=== PATIENT | male | born 1965 | race Caucasian/White ===

== ENCOUNTER 2022-08-03 11:54 | Emergency (ER) | payer OTHER, SELFPAY ==
[2022-08-03] VITALS (8 sets, daily range): BP systolic 129–146; BP diastolic 68–86; PULSE 81–89; RESP 15–21; TEMP 36.1; O2SAT 94–97; BMI 33.7
--- NOTE | 2022-08-03 12:09 | DI.CT.S_ITS ---
PROCEDURE: CT HEAD/BRAIN WO CON INDICATIONS: vision loss R Lower, recent COVID, likely central retinal occ TECHNIQUE: Noncontrast 4.5 mm thick angled axial sections acquired from the foramen magnum to the vertex, with coronal and sagittal reformats. For radiation dose reduction, the following was used: automated exposure control, adjustment of mA and/or kV according to patient size. COMPARISON: None. FINDINGS: Image quality: Excellent. CSF spaces: Basal cisterns are patent. No extra-axial fluid collections. Ventricles are normal in size and shape. Brain: No midline shift. No intracranial masses or hemorrhage. Jasso-white matter interface is normal. Skull and face: Calvarium and visualized facial bones are intact, without suspicious lesions. Soft tissue irregularity can be seen involving the right posterior scalp, as on series 2, image 24 and on series 4, image 31. Sinuses: Visualized sinuses and mastoids are clear. IMPRESSION: No significant noncontrast head CT abnormality can be seen. Scalp irregularity is seen on the right posteriorly, which may be related to a remote injury. Please correlate with patient history and physical examination findings. Dictated by: Ignacio Recio M.D. on 08/03/2022 at 11:36 Approved by: Ignacio Recio M.D. on 08/03/2022 at 11:37
--- NOTE | 2022-08-03 12:21 | PC.NURSE ---
pt queried by di staff regarding allergies to idodine and pt states no im not but your not gonna give me contrast pt asked why?is there an allergy and pt states no but im not gonna get it because i dont believe in it MD aware charting pt refusal of ct with contrast and will only proceed with ct without contrast.
[2022-08-03 12:29] LABS: Add Manual Diff / Slide Review NO; Basophils Absolute Auto 0 /uL (0-100); Basophils Percent Auto 0.3 % (0-2); Eosinophils Absolute Auto 300 /uL (0-450); Eosinophils Percent Auto 3.7 % (2-4); Hematocrit 46.6 % (41-53); Hemoglobin 15.6 g/dL (13.5-17.5); Lymphocytes Absolute Auto 2900 /uL (1100-4500); Lymphocytes Percent Auto 32.4 % (25-40); Mean Corpuscular HGB Conc 33.4 % (30-36); Mean Corpuscular Hemoglobin 29.2 PG (26-34); Mean Corpuscular Volume 87.3 fL (80-100); Monocytes Absolute Auto 400 /uL (0-900); Monocytes Percent Auto 4.2 % (3-14); Neutrophils Absolute Auto 5300 /uL (1500-7000); Neutrophils Percent Auto 59.4 % (50-75); Platelet Count 218 X10^3/uL (150-400); Red Blood Cell Count 5.34 X10^6/uL (4.5-5.9); Red Cell Distribution Width 13.9 % (11.6-14.8); White Blood Cell Count 8.9 X10^3/uL (4.5-11.0)
--- NOTE | 2022-08-03 12:30 | ED.NEUROSD ---
HPI - Neuro Symptoms/Deficit General Chief Complaint: Neuro Symptoms/Deficit Stated Complaint: sent by Eye for stroke assessment Time Seen by Provider: 08/03/22 12:09 Source: patient Mode of arrival: Ambulatory History of Present Illness HPI Narrative: This is a 56-year-old male with no known medical issues but no primary care visits recently. Patient had recent COVID infection about 10 or 14 days ago with fever, chills, headache, upper respiratory symptoms myalgias which had been improving. He lost vision with his right eye he states it is fuzzy in the lower portion for the last 4 days. He states he woke up with these symptoms. No eye pain, no vision changes on the left. Patient was seen with Dr. Callie yen with ophthalmology as an outpatient and she notes a right lower bottom hemianopsia with some right edema of the disc suspicious for anterior ischemic changes. Patient is recommended for stroke workup, ESR, CRP and labs. Dr. Yen spoke with myself, she also recommends brimonidine eye drops to the right eye t.i.d. with follow-up with her regardless of findings. Patient states headache, no vision changes to the left, no chest pain or shortness of breath, no numbness, tingling or weakness, no difficulty with speech, no facial droop. Patient states he is not had similar symptoms in the past. He states his 3rd episode of COVID in the past several years. He states he does not follow the primary care physician has not seen 1 in several years. He is not currently established. Denies any daily medications, no surgeries. No known drug allergies. He chews nicotine gum daily, no alcohol, no illicit. Patient initially refused CT angio for concerns for contrast/renal dysfunction reactions. Discussed risks versus benefits and patient later decided to forward after checking his creatinine and fluids to be given. On Anticoagulants: No Related Data Home Medications Medication Instructions Recorded Confirmed cholecalciferol (vitamin D3) 125 5,000 unit PO QDAY ##0 10/17/17 02/19/19 mcg (5,000 unit) capsule Previous Rx's Medication Instructions Recorded albuterol sulfate 90 mcg/actuation 1 inh inhalation Q4-6H PRN 02/19/19 aerosol inhaler shortness of breath #18 grams azithromycin 250 mg tablet See Rx Instructions PO .COMPLEX #6 02/19/19 tabs benzonatate 100 mg capsule 100 mg PO BEDTIME #20 caps 02/19/19 Allergies Allergy/AdvReac Type Severity Reaction Status Date / Time No Known Drug Allergies Allergy Verified 08/03/22 12:06 Review of Systems Review of Systems ROS Unobtainable: All systems reviewed & are unremarkable except as noted in HPI and below Hematologic/Lymphatic On Anticoagulants: No Patient History Medical History Skin cancer (2016) Social History Smoking Status: Unknown if ever smoked Smoking Status: Unknown if ever smoked alcohol intake frequency: holidays/special occasions only Substance Use Type: does not use Exam Narrative Exam Narrative: GEN: well nourished, well appearing male, alert and oriented x 3, patient appears to be in mild distress. HEENT: Atraumatic, pupils are equal round reactive to light, extraocular movements are intact, nares are clear, TMs are clear with no fluid, there is no conjunctival pallor. Throat is clear without any exudates, erythema, tonsillar enlargement or uvular deviation, no facial droop. Patient had dedicated eye exam just prior to arrival with ophthalmology was not recreated today. HEART: Regular rate and rhythm without murmur, clicks, rubs. LUNGS:Lungs clear to auscultation, no wheezes, rales, crackles, chest moves symmetrically ABD:bowel sounds normal, soft, non-tender, no guarding, rebound, rigidity, no masses noted, no hepatosplenomegaly :No CVA tenderness. MSCL: Non-tender, no muscle atrophy, muscles strength 5/5 upper and lower extremities, full range of motion, normal gait NEURO:CN 2-12 intact, sensation normal, reflexes 2/4 upper and lower extremities. finger nose finger test normal, heel ceballos test normal SKIN: No rash, erythema or other skin changes Initial Vital Signs Initial Vital Signs: Vital Signs Temperature 97.0 F L 08/03/22 12:06 Pulse Rate 89 08/03/22 12:06 Respiratory Rate 15 08/03/22 12:06 Blood Pressure 142/86 H 08/03/22 12:06 Pulse Oximetry 96 08/03/22 12:06 Oxygen Delivery Method 08/03/22 12:06 Scores NIH Stroke Scale Level of Conciousness: Alert, keenly responsive Ask month/age: Answers both questions correctly. Open/close eyes, close hand: Performs both tasks correctly Best gaze horizontal: Normal Visual ying: Partial hemianopia Facial palsy: Normal symetrical movement Left arm drift: No drift for full 10 sec Right arm drift: No drift for full 10 sec Left leg drift: No drift for full 5 sec Right leg drift: No drift for full 5 sec Limb ataxia: Absent Sensory on face/arms/legs: Normal, no sensory loss Best language: No aphasia, normal Dysarthria: Normal Extinction or inattention: No abnormality Total NIH Stroke scale score: 1 Course Orders Ordered: ED Orders 08/03/22 12:09 CT head/brain wo con Stat 08/03/22 12:16 CRP [C-Reactive Protein Quant] Stat Complete Blood Count AUTO DIFF Stat Comprehensive Metabolic Panel Stat ESR [Erythrocyte Sedimentation Rate] Stat Ethanol (ETOH) Stat Partial Thromboplastin Time Stat Prothrombin Time INR Stat Troponin & CK Cardiac Panel Stat EKG-12 Lead Stat 08/03/22 12:51 CT angio head and neck Stat 08/03/22 13:10 COVID19 -Nasal RAPID/Pre-Proc Stat 08/03/22 13:25 Urine Drug Screen, Rapid Stat Discontinued Medications Aspirin (Aspirin 81 Mg Chew Tab) 324 mg PO NOW ONE Stop: 08/03/22 14:42 Last Admin: 08/03/22 14:45 Dose: 324 mg Documented By: LESVIA Sodium Chloride (Normal Saline 0.9%) 1,000 mls @ 1,000 mls/hr IV BOLUS ONE Stop: 08/03/22 13:50 Last Infusion: 08/03/22 15:15 Dose: 0 mls/hr Documented By: Admin: 08/03/22 13:30 Dose: 1,000 mls/hr Documented By: LESVIA Vital Signs Vital signs: Vital Signs - 8 hr 08/03/22 12:06 08/03/22 12:18 08/03/22 12:18 Temperature 97.0 F L Pulse Rate 89 88 Respiratory Rate 15 18 Blood Pressure 142/86 H 131/73 Pulse Oximetry 96 94 Oxygen Delivery Method Room Air Room Air 08/03/22 12:30 08/03/22 12:30 08/03/22 13:06 Temperature Pulse Rate 87 86 Respiratory Rate 20 20 Blood Pressure 139/81 Pulse Oximetry 94 97 Oxygen Delivery Method 08/03/22 13:28 08/03/22 13:28 08/03/22 13:30 Temperature Pulse Rate 83 Respiratory Rate 20 Blood Pressure 145/73 H 146/76 H Pulse Oximetry 96 Oxygen Delivery Method 08/03/22 13:30 08/03/22 14:00 08/03/22 14:00 Temperature Pulse Rate 84 83 Respiratory Rate 16 17 Blood Pressure 129/70 Pulse Oximetry 95 94 Oxygen Delivery Method Room Air 08/03/22 14:30 08/03/22 14:30 Temperature Pulse Rate 81 Respiratory Rate 21 Blood Pressure 130/68 Pulse Oximetry 94 Oxygen Delivery Method MDM - Neuro Symptoms/Deficit Lab Data 08/03/22 12:16 08/03/22 12:16 Labs: Lab Results 08/03/22 08/03/22 08/03/22 Range/Units 12:16 12:16 12:16 WBC 8.9 (4.5-11.0) X10^3/uL RBC 5.34 (4.5-5.9) X10^6/uL Hgb 15.6 (13.5-17.5) g/dL Hct 46.6 (41-53) % MCV 87.3 (80-100) fL MCH 29.2 (26-34) PG MCHC 33.4 (30-36) % RDW 13.9 (11.6-14.8) % Plt Count 218 (150-400) X10^3/uL Neut % (Auto) 59.4 (50-75) % Lymph % (Auto) 32.4 (25-40) % [place] % (Auto) 4.2 (3-14) % Eos % (Auto) 3.7 (2-4) % Baso % (Auto) 0.3 (0-2) % Neut # (Auto) 5300 (1916-0515) /uL Lymph # (Auto) 2900 (0040-5560) /uL [place] # (Auto) 400 (0-900) /uL Eos # (Auto) 300 (0-450) /uL Baso # (Auto) 0 (0-100) /uL ESR 9 (0-15) MM/HR PT 12.0 (10.1-12.7) SECONDS INR 1.0 (0.9-1.3) APTT 28 (26-36) SECONDS Sodium 135 L (137-145) mmol/L Potassium 4.0 (3.4-5.1) mmol/L Chloride 98 (98-107) mmol/L Carbon Dioxide 27 (22-32) mmol/L BUN 13 (9-20) mg/dL Creatinine 0.63 L (0.66-1.25) mg/dL Estimated GFR > 60 (>60) mL/min BUN/Creatinine Ratio 20.6 (6-22) Glucose 351 H (70-100) mg/dL Calcium 9.5 (8.4-10.2) mg/dL Total Bilirubin 0.7 (0.2-1.3) mg/dL AST 21 (17-59) IU/L ALT 26 (<50) IU/L Alkaline Phosphatase 147 H (38-126) U/L Total Creatine Kinase 148 (55-170) U/L CK-MB (CK-2) 4.78 H (<2.37) ng/mL CK-MB (CK-2) Rel Index 3.2 (1.5-5.0) % Troponin I < 0.012 (0.01-0.034) ng/mL C-Reactive Protein 1.5 H (<1.0) mg/dL Total Protein 7.7 (6.3-8.2) g/dL Albumin 4.3 (3.5-5.0) g/dL Globulin 3.4 (1.7-4.1) g/dL Albumin/Globulin Ratio 1.3 (1.0-2.8) U Opiates 300ng/mL cut (Negative) Ur Oxycodone Screen (Negative) Urine Methadone Screen (Negative) Ur Barbiturates Screen (Negative) U Tricyclic Antidepress (Negative) Ur Phencyclidine Scrn (Negative) Ur Amphetamines Screen (Negative) U Methamphetamines Scrn (Negative) Ur MDMA Scrn (Ecstasy) (Negative) U Benzodiazepines Scrn (Negative) Urine Cocaine Screen (Negative) U Marijuana (THC) Screen (Negative) Ethyl Alcohol < 10 ( - 10) mg/dL SARS-CoV-2 (PCR) (Negative) 08/03/22 08/03/22 Range/Units 13:10 13:25 WBC (4.5-11.0) X10^3/uL RBC (4.5-5.9) X10^6/uL Hgb (13.5-17.5) g/dL Hct (41-53) % MCV (80-100) fL MCH (26-34) PG MCHC (30-36) % RDW (11.6-14.8) % Plt Count (150-400) X10^3/uL Neut % (Auto) (50-75) % Lymph % (Auto) (25-40) % [place] % (Auto) (3-14) % Eos % (Auto) (2-4) % Baso % (Auto) (0-2) % Neut # (Auto) (6226-7944) /uL Lymph # (Auto) (5669-4590) /uL [place] # (Auto) (0-900) /uL Eos # (Auto) (0-450) /uL Baso # (Auto) (0-100) /uL ESR (0-15) MM/HR PT (10.1-12.7) SECONDS INR (0.9-1.3) APTT (26-36) SECONDS Sodium (137-145) mmol/L Potassium (3.4-5.1) mmol/L Chloride (98-107) mmol/L Carbon Dioxide (22-32) mmol/L BUN (9-20) mg/dL Creatinine (0.66-1.25) mg/dL Estimated GFR (>60) mL/min BUN/Creatinine Ratio (6-22) Glucose (70-100) mg/dL Calcium (8.4-10.2) mg/dL Total Bilirubin (0.2-1.3) mg/dL AST (17-59) IU/L ALT (<50) IU/L Alkaline Phosphatase (38-126) U/L Total Creatine Kinase (55-170) U/L CK-MB (CK-2) (<2.37) ng/mL CK-MB (CK-2) Rel Index (1.5-5.0) % Troponin I (0.01-0.034) ng/mL C-Reactive Protein (<1.0) mg/dL Total Protein (6.3-8.2) g/dL Albumin (3.5-5.0) g/dL Globulin (1.7-4.1) g/dL Albumin/Globulin Ratio (1.0-2.8) U Opiates 300ng/mL cut Negative (Negative) Ur Oxycodone Screen Negative (Negative) Urine Methadone Screen Negative (Negative) Ur Barbiturates Screen Negative (Negative) U Tricyclic Antidepress Negative (Negative) Ur Phencyclidine Scrn Negative (Negative) Ur Amphetamines Screen Negative (Negative) U Methamphetamines Scrn Negative (Negative) Ur MDMA Scrn (Ecstasy) Negative (Negative) U Benzodiazepines Scrn Negative (Negative) Urine Cocaine Screen Negative (Negative) U Marijuana (THC) Screen Negative (Negative) Ethyl Alcohol ( - 10) mg/dL SARS-CoV-2 (PCR) Negative (Negative) Imaging Data CT scan - head: Radiologist's Impression: Yoav Lema??56??M??1965 ? Allergy/Adv: No Known Drug Allergies Close Head CT (Signed) Ignacio Recio - 08/03/22 [place] [address] CT Scan Report Signed Patient: Yaov Lema MR#: [id number] : 1965 Acct:[id number] Age/Sex: 56 / M Date of Service: 08/03/22 Loc: ED Accession Number: [id number] ?? Procedure: CT head/brain wo con Ordering Provider: Katarzyna Roque D.O. PROCEDURE:? CT HEAD/BRAIN WO CON ? INDICATIONS:? vision loss R Lower, recent COVID, likely central retinal occ ? TECHNIQUE:? Noncontrast 4.5 mm thick angled axial sections acquired from the foramen magnum to the vertex, with coronal and sagittal reformats.? For radiation dose reduction, the following was used:? automated exposure control, adjustment of mA and/or kV according to patient size.? ? COMPARISON:? None. ? FINDINGS:? Image quality:? Excellent.? ? CSF spaces:? Basal cisterns are patent.? No extra-axial fluid collections.? Ventricles are normal in size and shape.? ? Brain:? No midline shift.? No intracranial masses or hemorrhage.? Jasso-white matter interface is normal.? ? Skull and face:? Calvarium and visualized facial bones are intact, without suspicious lesions.? Soft tissue irregularity can be seen involving the right posterior scalp, as on series 2, image 24 and on series 4, image 31. ? Sinuses:? Visualized sinuses and mastoids are clear.? IMPRESSION:? No significant noncontrast head CT abnormality can be seen. ? Scalp irregularity is seen on the right posteriorly, which may be related to a remote injury.? Please correlate with patient history and physical examination findings.? ? Dictated by: Ignacio Recio M.D. on 08/03/2022 at 11:36 ? ? Approved by: Ignaico Recio M.D. on 08/03/2022 at 11:37?? CTA - brain/neck: Radiologist's Impression: Close Head/Neck CTA (Signed) Raulito Ramirez - 08/03/[address] (Signed) Ignacio Recio - 08/03/22 [facility]?[place] [address] CT Scan Report Signed Patient: Yoav Lema MR#: [id number] : 1965 Acct:[id number] Age/Sex: 56 / M Date of Service: 08/03/22 Loc: ED Accession Number: [id number] ?? Procedure: CT angio head and neck Ordering Provider: Katarzyna Roque D.O. PROCEDURE:? CT ANGIO HEAD AND NECK ? INDICATIONS:? retinal occlusion? right. ? TECHNIQUE:? ?After the administration of intravenous contrast, 1 mm thick sections acquired from the aortic arch through the [place] of [place].? Post-contrast 4.5 mm thick sections then re-acquired from the foramen magnum to the vertex.? 3-dimensional raedstb-ixctehuay-vevmqddkfw (MIP) and/or volume rendering reformats were acquired of the central intracranial vasculature and neck separately. For radiation dose reduction, the following was used:? automated exposure control, adjustment of mA and/or kV according to patient size.? ? COMPARISON:? [facility], CT, CT HEAD/BRAIN WO CON, 08/03/2022, 12:24. ? FINDINGS:? Image quality:? Excellent.? ? BRAIN:? CSF spaces:? Ventricles are normal in size and shape.? Basal cisterns are patent.? No extra-axial fluid collections.? ? Brain:? No midline shift.? No acute intracranial hemorrhage or mass effect.? Jasso-white matter interface appears intact.? ? Skull and face:? Calvarium and facial bones appear intact, without suspicious lesions.? Orbits appear normal.? Chronic nonspecific right posterior scalp irregularity, likely scarring. ? Sinuses:? Sinuses and mastoids are clear.? ? HEAD CT ANGIOGRAPHY:? Anterior circulation:? Intracranial internal carotid arteries are normal in size and flow.? The ophthalmic arteries are grossly patent bilaterally.? The central retinal arteries are too small to visualize with CT.? The flow within the paired anterior cerebral arteries is normal and symmetric.? The flow within the middle cerebral arteries is normal and symmetric.? The anterior communicating artery is seen.? No aneurysms are seen.? ? Posterior circulation:? Visualized portions of the vertebral arteries demonstrate normal caliber, and join to form a normal appearing basilar artery.? Flow within the posterior cerebral arteries is normal and symmetric.? No aneurysms are seen.? ? NECK CT ANGIOGRAPHY:? Carotid system:? There is a common origin of the right brachiocephalic artery and left common carotid artery, a normal variant.? The origins of the common carotid arteries appear patent.? The common carotid arteries demonstrate normal caliber and courses.? The bifurcation regions are both widely patent.? The internal carotid arteries demonstrate normal calibers and tortuous courses.? ? Posterior circulation:? The origins of the vertebral arteries both appear widely patent.? The more superior extracranial portions of both vertebral arteries also demonstrate normal courses and calibers.? They join to form a normal appearing basilar artery.? ? Soft tissues:? Visualized neck soft tissues demonstrate no suspicious abnormalities.? ? Bones:? No suspicious bony lesions.? Mild degenerative changes are seen in the spine. ? ? IMPRESSION:? 1. No significant arterial stenosis or large vessel occlusion.? Proximal ophthalmic arteries are patent bilaterally. 2. Tortuosity of the internal carotid arteries can be seen in the setting of chronic systemic hypertension. 3. No acute intracranial abnormality is seen.? ? Any quantitative measurements of stenosis were performed using NASCET criteria.? Approved by: Raulito Ramirez M.D. on 08/03/2022 at 14:00? ECG Data Attestation: I personally reviewed and interpreted this ECG as follows: Prior ECG tracings: not available for review Interpretation: Sinus rhythm right bundle-branch block, left anterior fascicular block. Bifascicular block with rate 80 TX 152 QRS 8160 QTC of 496. No priors for comparison. MDM Narrative Medical decision making narrative: Patient's note from Dr. 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 with superior edema and possible Hollenhorst plaque he also has what is called a disc at risk with crowded small cup-to-disc bilaterally causes of ischemic optic neuropathy should also be considered and include sed rate and CRP to rule out temporal arteritis, concern for hypercoagulable state with COVID, visual testing shows inferior altitudinal loss of the right eye consistent with edema and macular OCT showing edema only peripapillary, prognosis for recovery is poor they recommend brimonidine 2% 3 times daily to the right eye with follow-up at least aspirin 81 mg daily if workup is negative This is a 56-year-old male with concern for retinal artery occlusion as possible stroke and was sent by ophthalmology for additional workup. Patient's labs show a negative ESR but elevated CRP, patient has right lower vision changes but no other changes seems much more consistent with hemianopsia than a giant cell arteritis. Patient has not had any tenderness on the side he did have some headache, patient had recent COVID which increases his hypercoagulable potential initial head CT is negative, there was some delay with CT angio as patient was concerned about contrast induced nephropathy and reactions. After discussion offered carotid ultrasounds but will not allow us to visualize the intracranial vessels as well. Patient decided after fluids and checking renal function to go ahead and proceed with CT angio. Discussed risks versus benefits. Patient's NIH is 1 for his vision change and otherwise negative neurologic exam. Patient is far outside of tPA window with at least. CT head is negative, CT angio does not show acute occlusive changes, proximal ophthalmic arteries are bilaterally patent. Tortuosity and ICAs can be seen in setting of chronic systemic hypertension. ESR is negative but CRP is elevated, CBC, CMP and coags otherwise show no major changes. Based on patient's recent symptoms my suspicion is much higher for central retinal artery occlusion over giant cell arteritis. Patient is to follow up with Ophthalmology, aspirin 81 mg daily brimonidine drops which have already been sent by Dr. Yen. Patient given referral for primary care for additional workup. 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 She recommend you continue monitoring drips, to the right eye 3 times daily. Prescription sent to [facility] in [place] You also need to follow up with primary care for additional workup to evaluate for cholesterol and additional appropriate stroke workup. I would recommend you take an aspirin 81 mg daily. Please return for new vision changes, numbness, tingling weakness, speech changes, difficulty with ambulation, severe headaches, chest pain or shortness of breath or other new or concerning changes. Prescriptions: No Action azithromycin 250 mg tablet See Rx Instructions PO .COMPLEX Qty: 6 0RF Rx Instructions: take 500 mg today (day 1), then 250 mg for 4 days (days 2-5) PO benzonatate 100 mg capsule 100 mg PO BEDTIME Qty: 20 0RF albuterol sulfate 90 mcg/actuation HFA aerosol inhaler 1 inh INHALATION Q4-6H PRN (Reason: shortness of breath) Qty: 18 0RF cholecalciferol (vitamin D3) 5,000 UNIT capsule 5,000 unit PO QDAY Qty: 0 Referrals: Miscellaneous,Doctor, [Primary Care Provider] - Barbara Stacy DO [Physician] - Stand Alone Forms: Patient Portal/API
[2022-08-03 12:45] LABS: PTT Partial Thromboplastin Tim 28 SECONDS (26-36)
[2022-08-03 12:46] LABS: Alanine Aminotransferase 26 IU/L (<50); Albumin 4.3 g/dL (3.5-5.0); Albumin Globulin Ratio 1.3 (1.0-2.8); Alkaline Phosphatase 147 U/L (38-126); Aspartate Aminotransferase 21 IU/L (17-59); BUN Creatinine Ratio 20.6 (6-22); Bilirubin Total 0.7 mg/dL (0.2-1.3); Blood Urea Nitrogen 13 mg/dL (9-20); C-Reactive Protein Quant 1.5 mg/dL (<1.0); Calcium 9.5 mg/dL (8.4-10.2); Carbon Dioxide 27 mmol/L (22-32); Chloride 98 mmol/L (98-107); Creatine Kinase 148 U/L (55-170); Estimated Glomerular Filt Rate > 60 mL/min (>60); Ethanol (ETOH) < 10 mg/dL; Globulin 3.4 g/dL (1.7-4.1); Glucose 351 mg/dL (70-100); Sodium 135 mmol/L (137-145); Total Protein 7.7 g/dL (6.3-8.2)
--- NOTE | 2022-08-03 12:51 | DI.CT.S_ITS ---
PROCEDURE: CT ANGIO HEAD AND NECK INDICATIONS: retinal occlusion? right. TECHNIQUE: After the administration of intravenous contrast, 1 mm thick sections acquired from the aortic arch through the [place] of [place]. Post-contrast 4.5 mm thick sections then re-acquired from the foramen magnum to the vertex. 3-dimensional vxcwczw-wixdbhrej-ffyvowqnrw (MIP) and/or volume rendering reformats were acquired of the central intracranial vasculature and neck separately. For radiation dose reduction, the following was used: automated exposure control, adjustment of mA and/or kV according to patient size. COMPARISON: [facility], CT, CT HEAD/BRAIN WO CON, 08/03/2022, 12:24. FINDINGS: Image quality: Excellent. BRAIN: CSF spaces: Ventricles are normal in size and shape. Basal cisterns are patent. No extra-axial fluid collections. Brain: No midline shift. No acute intracranial hemorrhage or mass effect. Jasso-white matter interface appears intact. Skull and face: Calvarium and facial bones appear intact, without suspicious lesions. Orbits appear normal. Chronic nonspecific right posterior scalp irregularity, likely scarring. Sinuses: Sinuses and mastoids are clear. HEAD CT ANGIOGRAPHY: Anterior circulation: Intracranial internal carotid arteries are normal in size and flow. The ophthalmic arteries are grossly patent bilaterally. The central retinal arteries are too small to visualize with CT. The flow within the paired anterior cerebral arteries is normal and symmetric. The flow within the middle cerebral arteries is normal and symmetric. The anterior communicating artery is seen. No aneurysms are seen. Posterior circulation: Visualized portions of the vertebral arteries demonstrate normal caliber, and join to form a normal appearing basilar artery. Flow within the posterior cerebral arteries is normal and symmetric. No aneurysms are seen. NECK CT ANGIOGRAPHY: Carotid system: There is a common origin of the right brachiocephalic artery and left common carotid artery, a normal variant. The origins of the common carotid arteries appear patent. The common carotid arteries demonstrate normal caliber and courses. The bifurcation regions are both widely patent. The internal carotid arteries demonstrate normal calibers and tortuous courses. Posterior circulation: The origins of the vertebral arteries both appear widely patent. The more superior extracranial portions of both vertebral arteries also demonstrate normal courses and calibers. They join to form a normal appearing basilar artery. Soft tissues: Visualized neck soft tissues demonstrate no suspicious abnormalities. Bones: No suspicious bony lesions. Mild degenerative changes are seen in the spine. IMPRESSION: 1. No significant arterial stenosis or large vessel occlusion. Proximal ophthalmic arteries are patent bilaterally. 2. Tortuosity of the internal carotid arteries can be seen in the setting of chronic systemic hypertension. 3. No acute intracranial abnormality is seen. Any quantitative measurements of stenosis were performed using NASCET criteria. Approved by: Raulito Ramirez M.D. on 08/03/2022 at 14:00
[2022-08-03 12:54] LABS: Erythrocyte Sedimentation Rate 9 MM/HR (0-15)
[2022-08-03 12:55] LABS: Troponin I < 0.012 ng/mL (0.01-0.034)
[2022-08-03 13:01] LABS: CKMB % Relative Index 3.2 % (1.5-5.0); Creatine Kinase MB 4.78 ng/mL (<2.37); HEMOLYSIS 18 (0-50)
[2022-08-03] MEDS: SODIUM CHLORIDE 0.9% 1,000 ML 1000 ML IV (13:30)
[2022-08-03 13:39] LABS: Ur Creatinine Normal (Normal); Ur Specific Gravity Normal (Normal); Urine pH Normal (Normal)
[2022-08-03 13:40] LABS: UR Morphine/Opiate cutoff 300 Negative (Negative); Urine Amphetamines Negative (Negative); Urine Barbiturates Negative (Negative); Urine Benzodiazepines Negative (Negative); Urine Cocaine Negative (Negative); Urine MDMA Negative (Negative); Urine Methadone Negative (Negative); Urine Methamphetamines Negative (Negative); Urine Oxycodone Negative (Negative); Urine Phencyclidine Negative (Negative); Urine Tetrahydrocannabinol Negative (Negative); Urine Tricyclic Antidepressant Negative (Negative)
[2022-08-03 13:47] LABS: COVID19 -Nasal RAPID Negative (Negative)
[2022-08-03] MEDS: ASPIRIN 81 MG CHEW TAB 324 MG PO (14:45)
== END 2022-08-03 15:16 | disposition home or self-care (01) ==
PROVIDERS: Emergency Provider Emergency Medicine; Family Provider Family Medicine
DX: H54.61 Unqualified visual loss, right eye, normal vision left eye (principal); R29.818 Other symptoms and signs involving the nervous system; R29.701 NIHSS score 1; Z20.822 Contact with and (suspected) exposure to COVID-19
CPT/HCPCS: 36415; 70450; 70496; 70498; 80053; 80305; 80320; 82550; 82553; 84484; 85025; 85610; 85651; 85730; 86140; 87635; 93005; 96360; 96361; 99284; C9803; Q9967

== ENCOUNTER → 2022-08-28 08:41 | Outpatient (CLI) | payer OTHER, SELFPAY ==
[2022-08-28 10:02] LABS: Hemoglobin A1C% w Est Avg Glu 12.1 % (4.0-6.0)
[2022-08-28 10:38] LABS: Cholesterol 164 mg/dL (140-199); HDL Cholesterol 43 mg/dL (40-60); LDL Cholesterol Calculated 99 mg/dL (<100); Triglycerides 108 mg/dL (35-150)
[2022-08-28 10:40] LABS: Creatinine Urine Random 52.6 mg/dL
[2022-08-30 15:53] LABS: Microalbumi Creatinin Ratio Ur 98.8 ug/mg CR (<30); Microalbumin Urine Random 5.2 mg/dL (0-1.6)
== END ==
PROVIDERS: Family Provider Family Medicine; PCP Family Medicine; Referring Provider Family Medicine; Visit Provider Family Medicine
DX: E11.8 Type 2 diabetes mellitus with unspecified complications (principal)
CPT/HCPCS: 36415; 80061; 82043; 82570; 83036

== ENCOUNTER → 2022-11-27 07:17 | Outpatient (CLI) | payer OTHER, SELFPAY ==
--- NOTE | 2022-11-27 07:20 | DI.RAD.S_ITS ---
PROCEDURE: XR TOE RT MIN 2V INDICATIONS: r/o fracture TECHNIQUE: 3 views of the right 2nd toe(s) acquired. COMPARISON: None. FINDINGS: Bones: No fracture or dislocation. Degenerative changes of the interphalangeal joints with joint space narrowing and degenerative changes of the 1st metatarsophalangeal joint with mild hallux valgus angulation. Soft tissues: No suspicious soft tissue densities. IMPRESSION: No definite fracture identified. Dictated by: Saúl Lyn M.D. on 11/27/2022 at 10:08 Approved by: Saúl Lyn M.D. on 11/27/2022 at 10:24
== END ==
PROVIDERS: Family Provider Family Medicine; PCP Family Medicine; Referring Provider Podiatrist Foot & Ankle Surgery; Visit Provider Podiatrist Foot & Ankle Surgery
DX: S90.31XD Contusion of right foot, subsequent encounter (principal); E11.29 Type 2 diabetes mellitus with other diabetic kidney complication; E11.42 Type 2 diabetes mellitus with diabetic polyneuropathy; H34.9 Unspecified retinal vascular occlusion; R03.0 Elevated blood-pressure reading, without diagnosis of hypertension; R80.9 Proteinuria, unspecified
CPT/HCPCS: 36415; 73660; 80048; 83036

== ENCOUNTER → 2022-11-27 08:21 | Outpatient (CLI) | payer OTHER, SELFPAY ==
[2022-11-27 09:38] LABS: BUN Creatinine Ratio 26.9 (6-22); Blood Urea Nitrogen 21 mg/dL (9-20); Calcium 9.6 mg/dL (8.4-10.2); Carbon Dioxide 27 mmol/L (22-32); Chloride 103 mmol/L (98-107); Estimated Glomerular Filt Rate > 60 mL/min (>60); Glucose 111 mg/dL (70-100); HEMOLYSIS < 15 (0-50); Potassium 4.5 mmol/L (3.4-5.1); Sodium 138 mmol/L (137-145)
[2022-11-28 03:36] LABS: x Labcorp Estim. Avg Glu (eAG) 143 mg/dL (.); x Labcorp Hemoglobin A1c 6.6 % (4.8-5.6)
== END ==
PROVIDERS: Family Provider Family Medicine; PCP Family Medicine; Referring Provider Family Medicine; Visit Provider Family Medicine
DX: E11.29 Type 2 diabetes mellitus with other diabetic kidney complication (principal); E11.42 Type 2 diabetes mellitus with diabetic polyneuropathy; H34.9 Unspecified retinal vascular occlusion; R03.0 Elevated blood-pressure reading, without diagnosis of hypertension; R80.9 Proteinuria, unspecified
CPT/HCPCS: 36415; 80048; 83036

== ENCOUNTER → 2023-03-28 08:35 | Outpatient (CLI) | payer OTHER, SELFPAY ==
[2023-03-28 09:54] LABS: Add Manual Diff / Slide Review NO; Basophils Absolute Auto 0 /uL (0-100); Basophils Percent Auto 0.6 % (0-2); Eosinophils Absolute Auto 100 /uL (0-450); Hematocrit 42.8 % (41-53); Hemoglobin 14.3 g/dL (13.5-17.5); Lymphocytes Absolute Auto 2200 /uL (1100-4500); Lymphocytes Percent Auto 29.4 % (25-40); Mean Corpuscular HGB Conc 33.5 % (30-36); Mean Corpuscular Hemoglobin 29.4 PG (26-34); Mean Corpuscular Volume 87.8 fL (80-100); Monocytes Absolute Auto 300 /uL (0-900); Monocytes Percent Auto 4.7 % (3-14); Neutrophils Absolute Auto 4700 /uL (1500-7000); Neutrophils Percent Auto 63.3 % (50-75); Platelet Count 196 X10^3/uL (150-400); Red Blood Cell Count 4.87 X10^6/uL (4.5-5.9); White Blood Cell Count 7.4 X10^3/uL (4.5-11.0)
[2023-03-28 10:11] LABS: Erythrocyte Sedimentation Rate 6 MM/HR (0-15)
[2023-03-28 10:34] LABS: Alanine Aminotransferase 23 IU/L (<50); Albumin 4.1 g/dL (3.5-5.0); Albumin Globulin Ratio 1.5 (1.0-2.8); Alkaline Phosphatase 102 U/L (38-126); Aspartate Aminotransferase 24 IU/L (17-59); BUN Creatinine Ratio 24.1 (6-22); Bilirubin Total 0.4 mg/dL (0.2-1.3); Blood Urea Nitrogen 20 mg/dL (9-20); Calcium 9.7 mg/dL (8.4-10.2); Carbon Dioxide 27 mmol/L (22-32); Chloride 103 mmol/L (98-107); Estimated Glomerular Filt Rate > 60 mL/min (>60); Globulin 2.8 g/dL (1.7-4.1); Glucose 131 mg/dL (70-100); HEMOLYSIS < 15 (0-50); Potassium 4.8 mmol/L (3.4-5.1); Sodium 137 mmol/L (137-145); Total Protein 6.9 g/dL (6.3-8.2)
[2023-03-28 10:38] LABS: High Sensitivity CRP - Cardiac 8.6 mg/L (1.0-3.0)
[2023-03-28 10:39] LABS: Rheumatoid Factor < 8.6 IU/mL (<12.0)
[2023-03-30 06:13] LABS: RPR Screen Non Reactive (Non Reactive)
== END ==
PROVIDERS: Family Provider Family Medicine; PCP Family Medicine; Referring Provider Ophthalmology; Visit Provider Ophthalmology
DX: H53.453 Other localized visual field defect, bilateral (principal); H47.10 Unspecified papilledema; H40.013 Open angle with borderline findings, low risk, bilateral
CPT/HCPCS: 36415; 80053; 84443; 85025; 85651; 86140; 86430; 86592

== ENCOUNTER → 2023-03-31 07:19 | Outpatient (CLI) | payer OTHER, SELFPAY ==
--- NOTE | 2023-03-31 07:21 | DI.MRI.S_ITS ---
PROCEDURE: MR HEAD/BRAIN WO/W CON INDICATIONS: Unspecified papilledema TECHNIQUE: Noncontrast axial T1 spin echo, axial T2 fast spin echo, sagittal and axial FLAIR, coronal T2 fast spin echo, axial gradient echo, axial diffusion and ADC through the brain. After the administration of contrast, axial and coronal and sagittal T1 spin echo with fat saturation through the brain. Coronal T2, axial T1 fat sat pre and post and coronal T1 fat sat post through the orbits. COMPARISON: None. FINDINGS: Image quality: Excellent. CSF spaces: Basal cisterns are patent. No extra-axial fluid collections. Ventricles are normal in size and shape. Brain: No midline shift. No intracranial bleeds or masses. No abnormal intracranial enhancement. There is mild cerebral volume loss for age. There is minimal periventricular white matter chronic small vessel ischemic change. The brainstem appears normal. Diffusion-weighted images demonstrate no acute ischemic insults. No chronic ischemic insults. Normal intravascular flow voids are present. Skull and face: Calvarial marrow is normal in signal. Susceptibility artifact in the right parietal scalp soft tissues, correlate with prior surgical history. Orbits appear normal. The optic nerves are normal in size without signal abnormality or enhancement. Sinuses: Paranasal sinus mucosal thickening. Right maxillary sinus mucous retention cyst. No mastoid air cell effusions. IMPRESSION: 1. The orbits are normal in appearance. No abnormal signal or enhancement within the optic nerves. 2. No acute intracranial abnormalities. Dictated by: Darci Moyer M.D. on 04/02/2023 at 8:59 Approved by: Darci Moyer M.D. on 04/02/2023 at 9:08
== END ==
PROVIDERS: PCP Family Medicine; Referring Provider Ophthalmology; Visit Provider Ophthalmology
DX: H53.453 Other localized visual field defect, bilateral (principal); H47.10 Unspecified papilledema
CPT/HCPCS: 70553; A9579

== ENCOUNTER → 2023-08-27 06:50 | Outpatient (CLI) | payer OTHER, SELFPAY ==
[2023-08-27 09:31] LABS: Hemoglobin A1C% w Est Avg Glu 5.5 % (4.0-6.0)
== END ==
PROVIDERS: PCP Family Medicine; Referring Provider Family Medicine; Visit Provider Family Medicine
DX: E11.42 Type 2 diabetes mellitus with diabetic polyneuropathy (principal)
CPT/HCPCS: 36415; 83036

== ENCOUNTER → 2024-04-02 08:25 | Outpatient (CLI) | payer OTHER, SELFPAY ==
[2024-04-02 10:25] LABS: Hemoglobin A1C% w Est Avg Glu 5.8 % (4.0-6.0)
[2024-04-02 10:42] LABS: HEMOLYSIS < 15 (0-50)
[2024-04-02 10:47] LABS: Alanine Aminotransferase 29 IU/L (<50); Albumin 4.2 g/dL (3.5-5.0); Albumin Globulin Ratio 1.6 (1.0-2.8); Alkaline Phosphatase 115 U/L (38-126); Aspartate Aminotransferase 26 IU/L (17-59); BUN Creatinine Ratio 24.4 (6-22); Bilirubin Total 0.5 mg/dL (0.2-1.3); Blood Urea Nitrogen 20 mg/dL (9-20); Calcium 9.5 mg/dL (8.4-10.2); Carbon Dioxide 22 mmol/L (22-32); Chloride 105 mmol/L (98-107); Estimated Glomerular Filt Rate > 60 mL/min (>60); Globulin 2.6 g/dL (1.7-4.1); Glucose 121 mg/dL (70-100); Potassium 4.3 mmol/L (3.4-5.1); Sodium 137 mmol/L (137-145); Total Protein 6.8 g/dL (6.3-8.2)
[2024-04-02 10:56] LABS: Creatinine Urine Random 152.05 mg/dL
[2024-04-02 11:15] LABS: Microalbumin Urine Random 52.4 mg/dL (0-1.6)
[2024-04-02 19:23] LABS: Prostate Specific Antigen Scrn 0.541 ng/mL (0.1-4.0)
[2024-04-03 16:48] LABS: HIV 1 & 2 Ab/Ag 4th Gen Combo NEGATIVE (NEGATIVE); Hep C Virus Ab w/Reflex Quant NEGATIVE s/c (NEGATIVE)
== END ==
PROVIDERS: PCP Family Medicine; Referring Provider Family Medicine; Visit Provider Family Medicine
DX: I10 Essential (primary) hypertension (principal); E11.29 Type 2 diabetes mellitus with other diabetic kidney complication; R80.9 Proteinuria, unspecified; E11.42 Type 2 diabetes mellitus with diabetic polyneuropathy; Z11.59 Encounter for screening for other viral diseases; Z11.4 Encounter for screening for human immunodeficiency virus [HIV]; Z12.5 Encounter for screening for malignant neoplasm of prostate
CPT/HCPCS: 36415; 80053; 82043; 82570; 83036; 86803; 87389; G0103